=== PATIENT | female | born 1940 | race Caucasian/White ===

== ENCOUNTER → 2018-10-29 | Outpatient (CLI) | payer OTHER ==
[~2018-10-29] MED LIST: CALCAVITD PO; CHOL10002 PO; CIPR250 PO; CYCL10 PO; FISH1000 PO; HYDACE5 PO; IBUP800 PO; MATURE MULTI VITAMIN PO; METAMUCIL660 GM PO; METRIBP PO; Multiple Vitam1 EAC1 PO; ROSU10TA PO; XYZAL5 MG PO; [UNRECOGNIZED DRUG - MIXTURE] PO
[2018-10-31 16:09] LABS: HPV 16 Negative (Negative); HPV 18 Negative (Negative); HPV OTHER HR TYPES Negative (Negative)
== END | disposition home or self-care (01) ==
LOC: LAB 20:20 → LAB SHORT 20:20
PROVIDERS: Nurse Practitioner Women's Health
DX: Z12.4 Encounter for screening for malignant neoplasm of cervix (principal)
CPT/HCPCS: 87624; G0123

== ENCOUNTER → 2020-01-16 | Outpatient (CLI) | payer OTHER ==
[2020-01-16 17:33] LABS: BASOPHILS ABSOLUTE AUTO 0.07 K/mm3 (0.00-0.23); BASOPHILS PERCENT AUTO 1 % (0-2); EOSINOPHILS ABSOLUTE AUTO 0.06 K/mm3 (0.00-0.68); EOSINOPHILS PERCENT AUTO 1 % (0-6); Hematocrit 35.9 % (33.0-51.0); Hemoglobin 12.1 g/dL (11.5-16.0); IMMATURE GRAN ABSOLUTE AUTO 0.04 K/mm3 (0.00-0.10); IMMATURE GRAN PERCENT AUTO 0 % (0-1); LYMPHOCYTES ABSOLUTE AUTO 0.92 K/mm3 (0.84-5.20); LYMPHOCYTES PERCENT AUTO 8 % (21-46); MONOCYTES ABSOLUTE AUTO 0.72 K/mm3 (0.16-1.47); MONOCYTES PERCENT AUTO 6 % (4-13); Mean Corpuscular HGB 30.9 pg (26.0-34.0); Mean Corpuscular HGB Conc 33.7 g/dL (31.5-36.5); Mean Corpuscular Volume 92 fL (80-100); Mean Platelet Volume 9.7 fL (9.1-12.4); NEUTROPHILS ABSOLUTE AUTO 9.81 K/mm3 (1.96-9.15); NEUTROPHILS PERCENT AUTO 85 % (41-73); Platelet Count 225 K/mm3 (150-400); RDW Coefficient Variation 12.1 % (11.7-14.2); RDW Standard Deviation 40.8 fL (35.1-46.3); Red Blood Cell Count 3.91 M/mm3 (3.80-5.20); White Blood Cell Count 11.62 K/mm3 (4.00-11.30)
[2020-01-16 17:44] LABS: Alanine Aminotransfer (ALT/SGP 26 U/L (12-78); Albumin, Blood 3.9 g/dL (3.4-5.0); Albumin/Globulin Ratio 1.1 (0.8-1.8); Alk Phos 74 U/L (40-126); Anion Gap 7 mmol/L (6-16); Aspartate Aminotrans (AST/SGOT 21 U/L (12-37); Bilirubin, Total 0.6 mg/dL (0.1-1.0); Blood Urea Nitrogen 18 mg/dL (8-24); Bun/Creatinine Ratio 24.7 (12.0-20.0); CO2, Blood 31 mmol/L (21-32); Calcium, Blood 8.8 mg/dL (8.5-10.1); Chloride, Blood 104 mmol/L (98-108); Creatinine, Blood 0.73 mg/dL (0.40-1.00); Globulin, Blood 3.4 g/dL (2.2-4.0); Glomerular Filtration Rate >60 (60-); Glucose, Blood 129 mg/dL (70-99); Potassium, Blood 3.9 mmol/L (3.5-5.5); Sodium, Blood 142 mmol/L (136-145); Total Protein, Blood 7.3 g/dL (6.4-8.2)
== END | disposition home or self-care (01) ==
LOC: LAB SHORT 17:27 → LAB EV 17:27
PROVIDERS: Physician Assistant
DX: M25.551 Pain in right hip (principal)
CPT/HCPCS: 80053; 85025

== ENCOUNTER 2021-02-01 10:58 | Inpatient (IN) | payer OTHER ==
[~2021-02-01] VITALS: Ht 172.7 cm; Wt 56.0 kg
[~2021-02-01 10:58] MED LIST changes: -CALCAVITD PO; +CALCIUM 600-VI1 EAC2 PO; +METAMUCIL POWD575 GM PO; -METAMUCIL660 GM PO
[2021-02-01 11:41] LABS: BASOPHILS ABSOLUTE AUTO 0.06 K/mm3 (0.00-0.23); BASOPHILS PERCENT AUTO 1 % (0-2); EOSINOPHILS ABSOLUTE AUTO 0.13 K/mm3 (0.00-0.68); EOSINOPHILS PERCENT AUTO 3 % (0-6); Hematocrit 34.5 % (33.0-51.0); Hemoglobin 11.7 g/dL (11.5-16.0); IMMATURE GRAN ABSOLUTE AUTO 0.02 K/mm3 (0.00-0.10); IMMATURE GRAN PERCENT AUTO 0 % (0-1); LYMPHOCYTES ABSOLUTE AUTO 1.08 K/mm3 (0.84-5.20); LYMPHOCYTES PERCENT AUTO 23 % (21-46); MONOCYTES ABSOLUTE AUTO 0.46 K/mm3 (0.16-1.47); MONOCYTES PERCENT AUTO 10 % (4-13); Mean Corpuscular HGB 31.3 pg (26.0-34.0); Mean Corpuscular HGB Conc 33.9 g/dL (31.5-36.5); Mean Corpuscular Volume 92 fL (80-100); Mean Platelet Volume 9.2 fL (9.1-12.4); NEUTROPHILS ABSOLUTE AUTO 3.01 K/mm3 (1.96-9.15); NEUTROPHILS PERCENT AUTO 63 % (41-73); Platelet Count 211 K/mm3 (150-400); RDW Coefficient Variation 12.1 % (11.7-14.2); RDW Standard Deviation 40.9 fL (35.1-46.3); Red Blood Cell Count 3.74 M/mm3 (3.80-5.20); White Blood Cell Count 4.76 K/mm3 (4.00-11.30)
[2021-02-01 12:02] LABS: Anion Gap 6 mmol/L (6-16); Blood Urea Nitrogen 12 mg/dL (8-24); CO2, Blood 28 mmol/L (21-32); Calcium, Blood 8.1 mg/dL (8.5-10.1); Chloride, Blood 106 mmol/L (98-108); Creatinine, Blood 0.67 mg/dL (0.40-1.00); Glomerular Filtration Rate >60 (60-); Glucose, Blood 98 mg/dL (70-99); Potassium, Blood 3.9 mmol/L (3.5-5.5); Sodium, Blood 140 mmol/L (136-145)
[2021-02-01] MEDS ORDERED: CARBIDOPA-LEVO1 EA15 PO (14:15)
[2021-02-01] MEDS ORDERED: DONEPEZIL HCL10 M1 PO (14:16)
[2021-02-01 14:38] LABS: Influenza A, PCR NEGATIVE (NEGATIVE); Influenza B, PCR NEGATIVE (NEGATIVE); Resp Syncytial Virus, PCR NEGATIVE (NEGATIVE); SARS-Cov-2 (COVID-19) PCR, MMC NEGATIVE (NEGATIVE)
--- NOTE | 2021-02-01 15:59 | NUR ---
NO ORTHO CONSULT ORDER NOTED BY DR. SHANKS STATES HE HAS BEEN NOTIFIED BY ED OF PT.
--- NOTE | 2021-02-01 16:08 | NUR ---
ARRIVED FROM THE ED VIA DEVIN, AWAKE, A&O X3 BUT SLOW TO RESPOND AT TIMES AND HAS DIFFICULTY GETTING HER WORDS OUT AT BEDSIDE, ORIENTED TO ROOM LAYOUT AND CALL LIGHT, RHIANNA CRUZ ARMED FOR SAFETY.
--- NOTE | 2021-02-01 17:11 | NUR ---
SUMMARY RATES PAIN AT 3/10 AFTER MEDICATED WITH IV DILAUDID, RESTING COMFORTABLY, ICE APPLIED TO R HIP AREA, NO ACUTE CHANGES THIS SHIFT.
[2021-02-02 05:11] LABS: BASOPHILS ABSOLUTE AUTO 0.06 K/mm3 (0.00-0.23); BASOPHILS PERCENT AUTO 1 % (0-2); EOSINOPHILS ABSOLUTE AUTO 0.19 K/mm3 (0.00-0.68); EOSINOPHILS PERCENT AUTO 2 % (0-6); Hematocrit 34.4 % (33.0-51.0); Hemoglobin 11.6 g/dL (11.5-16.0); IMMATURE GRAN ABSOLUTE AUTO 0.03 K/mm3 (0.00-0.10); IMMATURE GRAN PERCENT AUTO 0 % (0-1); LYMPHOCYTES ABSOLUTE AUTO 0.67 K/mm3 (0.84-5.20); LYMPHOCYTES PERCENT AUTO 8 % (21-46); MONOCYTES ABSOLUTE AUTO 0.71 K/mm3 (0.16-1.47); MONOCYTES PERCENT AUTO 8 % (4-13); Mean Corpuscular HGB 30.8 pg (26.0-34.0); Mean Corpuscular HGB Conc 33.7 g/dL (31.5-36.5); Mean Corpuscular Volume 91 fL (80-100); Mean Platelet Volume 9.2 fL (9.1-12.4); NEUTROPHILS ABSOLUTE AUTO 7.03 K/mm3 (1.96-9.15); NEUTROPHILS PERCENT AUTO 81 % (41-73); Platelet Count 181 K/mm3 (150-400); RDW Coefficient Variation 11.9 % (11.7-14.2); Red Blood Cell Count 3.77 M/mm3 (3.80-5.20); White Blood Cell Count 8.69 K/mm3 (4.00-11.30)
[2021-02-02 06:03] LABS: Magnesium, Blood 1.8 mg/dL (1.6-2.4)
[2021-02-02 06:04] LABS: Alanine Aminotransfer (ALT/SGP 33 U/L (12-78); Albumin, Blood 3.3 g/dL (3.4-5.0); Albumin/Globulin Ratio 1.2 (0.8-1.8); Alk Phos 59 U/L (50-136); Anion Gap 5 mmol/L (6-16); Aspartate Aminotrans (AST/SGOT 16 U/L (12-37); Bilirubin, Total 1.5 mg/dL (0.1-1.0); Blood Urea Nitrogen 9 mg/dL (8-24); Bun/Creatinine Ratio 14.2 (12.0-20.0); CO2, Blood 28 mmol/L (21-32); Calcium, Blood 7.9 mg/dL (8.5-10.1); Chloride, Blood 104 mmol/L (98-108); Creatinine, Blood 0.63 mg/dL (0.40-1.00); Globulin, Blood 2.8 g/dL (2.2-4.0); Glomerular Filtration Rate >60 (60-); Glucose, Blood 97 mg/dL (70-99); Potassium, Blood 3.8 mmol/L (3.5-5.5); Sodium, Blood 137 mmol/L (136-145); Total Protein, Blood 6.1 g/dL (6.4-8.2)
--- NOTE | 2021-02-02 06:24 | NUR ---
SHIFT SUMMARY LYING IN SEMI FOWLERS WITH EYES CLOSED. ABLE TO SWALLOW MEDS WHOLE WITH WATER NEEDED. HAS RESTED OFF AND ON THIS SHIFT. NO SIGNIFICANT CHANGES NOTED. RESPIRATIONS EVEN AN UNLABORED ON RA. ADEQUATE URINARY OUTPUT NOTED IN MOSER CATH. LEFT HIP IS ONLY PAINFUL WHEN MOVED, HAS DENIES NEED FOR PAIN MEDS. COOPER'S/SCD'S IN PLACE. WILL BE AN ADD ON TODAY, HAS BEEN NPO SINCE [place]. ATTEMPTED TO HAVE BM TWICE WITHOUT SUCCESS. UNABLE TO TOLERATED SITTING ON BEDPAN. HAS DENIED FURTHER PAIN, DISCOMFORT OR OTHER NEEDS AT THIS TIME. SAFETY MEASURES IN PLACE. WILL CONTINUE TO MONITOR AND ADDRESS NEEDS OR CONCERNS THEY ARISE. HAND OFF TO BE GIVEN TO ONCOMING SHIFT USING SBAR DURING BEDSIDE REPORT.
--- NOTE | 2021-02-02 10:30 | NUR ---
PT LEFT FOR SURGERY AT THIS TIME. PT USED BED KENDALL PRIOR TO LEAVING. MOSER IN PLACE PATENT AND DRAINING. GOLD WATCH SENT HOME WITH .
--- NOTE | 2021-02-02 10:39 | NUR ---
PT TRANSFERED TO [facility] VIA BED FROM FLOOR. History, Chart, Medications and Allergies reviewed before start of procedure. Lungs clear T/O to Auscultation. Patient confirms NPO status and agrees with scheduled surgery. Pre-Op teaching done. Pt verbalizes understanding.
--- NOTE | 2021-02-02 10:41 | NUR ---
PT'S 20 GAUGE IV IN RAC IS PATENT, WNL.
--- NOTE | 2021-02-02 14:43 | NUR ---
ARRIVAL TO UNIT PT ARRIVED TO UNIT FROM PACU AT APPROX 1430. PT WAKES UP TO VERBAL STIMULI AND WILL ANSWER QUESTIONS. FALLS BACK ASLEEP QUICKLY. REPORTS SOME NAUSEA AND DENIES PAIN. WHILE ASLEEP HAS BEEN REACHING FOR CATHETER/IV/DRESSINGS. ATTEMPTED TO REORIENT PATIENT. SHE STATES SHE JUST WANTS TO SLEEP. TOLERATED SMALL AMOUNT OF WATER WITH NAUSEA PILL. AT BEDSIDE. AQUACEL TO R HIP, CDI AT THIS TIME. SCD'S ON, COOPER HOSE ON.
--- NOTE | 2021-02-02 16:36 | NUR ---
SHIFT SUMMARY PT RETURNED FROM SURGERY AT APPROX 1430. ALERT TO PLACE BUT HAVING SOME CONFUSION. SEEING AND GRABBING AT THINGS IN THE AIR. KEEPS ASKING TO LAY DOWN WHEN SHE IS LAYING IN BED. AQUACEL TO SURGERY SITE WITH SOME DRAINAGE ABOUT THE SIZE OF A NICKEL PT IS CURRENTLY SLEEPING IN BED. APPLIED ICE PACK TO RIGHT HIP SURGERY SITE. CONTINUE TO MONITOR SIGNS OF PAIN AND WILL MEDICATE PER EMAR. MOSER CATHETER IN PLACE AND FUNCTIONING. IV PATENT AND RUNNING NS. AT BEDSIDE. COMPLAINED OF NAUSEA ONCE AND MEDICATED PER EMAR. TOLERATED ONE SIP OF WATER WELL.
--- NOTE | 2021-02-02 19:43 | NUR ---
RECIVED REPORT AND ASSUMED CARE OF PT. PT RESTING QUIETLY IN BED, FIDGETING WTIH SHEETS, ASKING TO GET OUT OF BED. CONFUSED, EASILY REDIRECTED. PLEASANT AND COOPERATIVE.
[2021-02-03 05:45] LABS: BASOPHILS ABSOLUTE AUTO 0.04 K/mm3 (0.00-0.23); BASOPHILS PERCENT AUTO 0 % (0-2); EOSINOPHILS ABSOLUTE AUTO 0.05 K/mm3 (0.00-0.68); EOSINOPHILS PERCENT AUTO 1 % (0-6); Hematocrit 35.1 % (33.0-51.0); Hemoglobin 12.1 g/dL (11.5-16.0); IMMATURE GRAN ABSOLUTE AUTO 0.04 K/mm3 (0.00-0.10); IMMATURE GRAN PERCENT AUTO 0 % (0-1); LYMPHOCYTES ABSOLUTE AUTO 0.47 K/mm3 (0.84-5.20); LYMPHOCYTES PERCENT AUTO 5 % (21-46); MONOCYTES ABSOLUTE AUTO 0.64 K/mm3 (0.16-1.47); MONOCYTES PERCENT AUTO 7 % (4-13); Mean Corpuscular HGB 30.9 pg (26.0-34.0); Mean Corpuscular HGB Conc 34.5 g/dL (31.5-36.5); Mean Corpuscular Volume 90 fL (80-100); Mean Platelet Volume 9.2 fL (9.1-12.4); NEUTROPHILS ABSOLUTE AUTO 8.54 K/mm3 (1.96-9.15); NEUTROPHILS PERCENT AUTO 87 % (41-73); Platelet Count 198 K/mm3 (150-400); RDW Coefficient Variation 11.9 % (11.7-14.2); RDW Standard Deviation 38.5 fL (35.1-46.3); Red Blood Cell Count 3.92 M/mm3 (3.80-5.20); White Blood Cell Count 9.78 K/mm3 (4.00-11.30)
--- NOTE | 2021-02-03 06:20 | NUR ---
SHIFT SUMMARY: JANNET IS ALERT AND ORIENTED TO SELF, SITUATION, AND FAMILY. VSS, NO ACUTE EVENTS THIS SHIFT. MOSER PATENT. IV TO R AC PATENT, IVF INFUSING. AQUACELL TO R HIP INTACT W/SCANT DRAINAGE. SHE CONTINUES TO ATTEMPT TO GET OUT OF BED. SHE DOES REORIENT EASILY, BUT ONLY FOR A SHORT TIME. SHE IS TOLERATING PO INTAKE WELL. SHE HAS USED THE CALL LIGHT INFREQUENTLY THIS SHIFT. BASELINE TREMOR D/T PARKINSON'S. SHE IS LYING IN BED WITH THE CALL LIGHT IN REACH. WILL REPORT TO DAY SHIFT RN.
--- NOTE | 2021-02-03 10:51 | NUR ---
PT RESTLESS, ATTEMPTING TO GET OUT OF BED. REACHING FOR TUBES AND ATTEMPTING TO REMOVE GOWNS. BECOMES AGITATED WITH REDIRECTION. IN ROOM REPORTS CONCERN WITH PATIENTS AGITATION AND RESTLESSNESS. SPOKE WITH DR COCHRAN. ORDERS RECIEVED FOR 2.5MG HALDOL IV X1.
--- NOTE | 2021-02-03 11:34 | NUR ---
PT CURRENTLY ASLEEP IN BED AFTER HALDOL ADMINISTERED. REPOSITIONED UP IN BED. 02 SAT IS 99% ON ROOM AIR WHILE ASLEEP. BED ALARM IS ON AND BE IS IN LOW POSITION.
--- NOTE | 2021-02-03 16:06 | NUR ---
SHIFT SUMMARY POD 1 R PERCUTANEOUS HIP PINNING PT HAS BEEN CONFUSED T/O SHIFT, SHE REACHES FOR CORDS AND REMOVES GOWN AND BLANKETS. VERY ANXIOUS DURING SHIFT, REPEATS THAT SHE WANTS TO GO HOME. HALDOL GIVEN PER ORDERS AND PATIENT WAS ABLE TO SLEEP. PT REPEATEDLY DENIES PAIN WHEN ASKED. MOSER IS PATENT AND DRAINING. PT TOLERATING PO WELL, NEEDS ENCOURAGEMENT TO EAT. SHE WAS ABLE TO WORK WITH THERAPY AND GET UP TO CHAIR. DIETITIAN MET WITH PATIENT AND TODAY. PALLIATIVE CARE IN TO SEE PATIENT AND SPOUSE. DRESSING IS INTACT. PT CONTINUES TO HOLD R ARM CLOSE AND PROTECT IT WHEN MOVING. PLAN TO CONTINUE WORKING ON MOBILIZING PATIENT
--- NOTE | 2021-02-03 16:44 | NUR ---
Spoke with Bedside RN Beau and discussed case. Pt and spouse may benefit from advanced care planning. Pt sitting in chair upon arrival. Pt denies pain, dyspnea, and anxiety at this time. Spouse Naeem at bedside. Pt struggles with communication and is slow to respond to questions. Engaged in therapeutic listening as Pt and spouse discusses some of their life events. Pt reports growing up with 5 brothers and no sisters. Pt states "God blessed her with 3 daughters". All 3 daughters live in [place]. Naeem is a and this RN thanked him for his service. Continued therapeutic listening. Naeem reports daughters are hesitant about visiting at this time due to COVID but are in the process of getting their vacinations. Gently educated Pt and Naeem on disease process including trajectory of disease. Discussed the importance of routine conversations with Pt's MDs and developing multiple plans as disease takes its coarse. Discussed the potential need for assistance with Pt's care pending her rehabilitation outcome. Continued therapeutic listening. Pt starting to drift off to sleep and this RN ended visit to allow Pt to rest. Palliative Care will remain available if called upon.
--- NOTE | 2021-02-03 17:47 | NUR ---
pt currently sitting up in her chair eating dinner. denies pain at this time.
--- NOTE | 2021-02-04 03:23 | NUR ---
SHIFT SUMMARY PT HAS BEEN ALERT, ORIENTED X2-3 AT START OF SHIFT. PT BEGAN TO GET VERY AGITATED AND WAS MED WITH HALDOL PER ORDER. PT HAS BEEN SLEEPING MOST OF THE SHIFT SINCE THE HALDOL WAS GIVEN. SHE HAS BEEN SLEEPING IN CHAIR PER PT REQUEST WITH LEGS ELEVATED AND TAB ALARM ON. MOSER IN PLACE, PATENT, STAT LOCK ON. ENCOURAGED PO INTAKE WHILE AWAKE, HOWEVER PT HAS DECLINED MOST PO INTAKE OVERNIGHT. PT RESTING IN CHAIR AT THIS TIME WITH CALL LIGHT IN REACH.
--- NOTE | 2021-02-04 07:25 | NUR ---
pt resting in recliner chair
--- NOTE | 2021-02-04 08:30 | NUR ---
pt sleeping wakes to verbals stimuli pt reposistioned asked pt if she would like to get back into bed pt stated no meds given as sched
--- NOTE | 2021-02-04 09:49 | NUR ---
pt visiting with family
--- NOTE | 2021-02-04 10:27 | NUR ---
ot at bedside working with pt
--- NOTE | 2021-02-04 11:01 | NUR ---
assisted back into bed with ot/pt ss also called req clarification on weight bearing status
--- NOTE | 2021-02-04 12:44 | NUR ---
02/04/21 1244 Mana Scott VERIFICATIONS: EDIT CHART.
--- NOTE | 2021-02-04 14:14 | NUR ---
pt wanting to rest req i lower the hob also worried she might spill her water so had me place the beside table to the side of the bed
--- NOTE | 2021-02-04 17:45 | NUR ---
PT SLEEPING WILL HOLD HER PO CALCIUM/VIT D
--- NOTE | 2021-02-05 06:42 | NUR ---
SHIFT SUMMARY POD3 R PERCUTANEOUS PINNING, ALERT BUT CONFUSED, EASILY REORIENTED, TOLERATING PO BUT HAS SOME TROUBLES W/ TREMORS RELATED TO PARKINSONS, PT REPORTS BEING STIFF AFTER SURGERY EVEN THOUGH SHE WAS UP TO CHAIR DURING DAY SHIFT, VOIDING VIA MOSER, WILL DISCUSS CONTINUATION W/ DAY RN. DENIES PAIN, REMAINED IN BED T/O SHIFT DUE TO STIFFNESS AND NWB STATUS TO RLE, DRESSING CHANGED THIS SHIFT DUE TO SATURATION, CLEANED W/ STERILE 4X4 AND WOUND CLEANSER. NO ACUTE EVENTS THIS SHIFT. CALL LIGHT IN REACH, WILL CONTINUE TO MONITOR AND REPORT TO ONCOMING DAY RN.
--- NOTE | 2021-02-05 10:55 | NUR ---
DISCHARGE PLANNING DISCUSSED PLAN FOR DISCHARE WITH IDA FROM CARE MANAGEMENT. IDA STATED DISCHARGE PLANNING WILL NEED TO WAIT UNTIL THE PROPER PEOPLE CAN BE CONTACTED AT [facility] ON SUNDAY; SINCE PT IS TO REMAIN NON-WEIGHT BEARING STATUS INSTEAD OF UPGRADING TO TOE TOUCH WEIGHT BEARING.
--- NOTE | 2021-02-05 18:11 | NUR ---
SHIFT SUMMARY PT IS POD#3 FROM A R HIP PINNING. PT HAS HAD MINIMAL PAIN. PT WAS UNABLE TO GET OOB TODAY. MOSER CATH REMAINS IN PLACE UNTIL TOMORROW PER DR. COCHRAN. PT IS WAITING FOR SNF PLACEMENT, APPARENTLY THERE HAS BEEN SOME DIFFICULTY SINCE PT IS TO REMAIN NON-WEIGHT BEARING. PT'S DAUGHTER IS PRESENT FOR SUPPORT. PT HAD PRUNE JUICE FOR BOWEL FUNCTION PER HER REQUEST, SHE ALSO HAD METAMUCIL. PT HAD A SMALL LIQUID BM TODAY. VSS. WILL MONITOR UNTIL REPORT TO NOC RN.
--- NOTE | 2021-02-05 18:54 | NUR ---
SUMMARY SHIFT PT IS A&OX2 ,POOD 3 HIP PINNING. PT WAS CONFUSED NOT AWARE WHERE SHE AT.PT HAS TREMORS CAUSED BY PARKINSONS,PT HAD MININAL PAIN .PAIN WAS MANAGED BY REPOSITIONIG AND REST.PT VOIDED THROUGH MOSER.PT & DAUGHTER WERE AT BEDSIDE FOR [place] .PATIENT HAD A SPONGE BATH TODAY AND WAS IN BED ALL SHIFT. PT VSS. WILL CONTINUE TO MONITOR AND GIVE REPORT TO NOC SHIFT.
--- NOTE | 2021-02-06 06:08 | NUR ---
SHIFT SUMMARY POD4 R PERCUTANEOUS PINNING, ALERT AND CONFUSED BUT PLEASANT, REORIENTS EASILY, COOPERATIVE W/ NURSING CARE, VSS, TOLERATING PO, DOES WELL W/ MEDS WHEN TREMORS ARE MINIMAL/STABLE, TREMORS R/T PARKINSONS, PAIN MANAGED PER EMAR. NO ACUTE EVENTS THIS SHIFT. CALL LIGHT IN REACH, WILL CONTINUE TO MONITOR AND REPORT TO ONCOMING DAY RN.
--- NOTE | 2021-02-06 09:45 | NUR ---
MOSER CATHETER REMOVED AT 0945.
--- NOTE | 2021-02-06 11:00 | NUR ---
FAMILY AT PT'S BEDSIDE PROVIDING SUPPORT.
--- NOTE | 2021-02-06 17:41 | NUR ---
DECREASED OUTPUT DR. MILLER NOTIFIED THAT PT HAS HAD 200ML OF URINE OUT AND CURRENTLY HAS 116ML OF URINE IN HER BLADDER. ENCOURAGING PT TO DRINK FLUIDS. ICE CHIPS PROVIDED FOR PT AND FLUIDS THAT SHE ENJOYS WERE ALSO PROVIDED. FAMILY EDUCATED TO USE THE BED SO THEY CAN ASSIST PT TO DRINK FLUIDS WHEN AWAKE.
--- NOTE | 2021-02-06 18:40 | NUR ---
SHIFT SUMMARY PT IS POD#4 FROM R HIP PINNING. MOSER CATHETER REMOVED THIS SHIFT, PT STILL NEEDS TO VOID, BLADDER SCAN 116ML. DR. MILLER AWARE OF DECREASED OUTPUT, FLUIDS HAVE BEEN ENCOURAGED. PT HAS REQUIRED ASSISTANCE WITH REPOSTIONING. FAMILY HAS ASSISTED WITH MEALS. PT HAS BEEN DROWSY TODAY. PAIN MANAGED WITH TYLENOL, PT HAS HAD MINIMAL PAIN. VSS. WAITING FOR POSSIBLE PLACEMENT TOMORROW. WILL MONITOR UNTIL REPORT TO NOC RN.
--- NOTE | 2021-02-06 18:44 | NUR ---
SHIFT SUMMARY PT WAS DROWSY MOST OF THE SHIFT,OBEYED COMMAND.PT WAS VERY COOPARATIVE DURING NUSRING CARE .PT VSS.PT PAIN WAS MANAGED PER EMAR, REPOSITIONING AND REST.PT AND DAUGHTER WERE AT BEDSIDE FOR SUPPORT.WILL CONTINUE TO MONITOR AND ASSESS PT.WILL GIVE REPORT TO UPCOMING SHIFT.
--- NOTE | 2021-02-06 22:24 | NUR ---
BLADDER SCAN BLADDER SCAN PERFORMED ON PT, RESULTS > 280ML, PLACED PT ON BED KENDALL BUT SHE WAS UNABLE TO VOID AT THIS TIME, WILL TRY AGAIN BY MIDNIGHT AND REDO SCAN. PT HAS HAD MINIMAL PO INTAKE TODAY, PROVIDER AWARE. WILL CONTINUE TO MONITOR PT CONDITION
--- NOTE | 2021-02-07 05:50 | NUR ---
SHIFT SUMMARY POD5 R PERCUTANEOUS PINNING, ALERT AND CONFUSED, REORIENTATION IS MINIMAL BUT PT REMAINS PLEASANT AND COOPERATIVE T/O SHIFT W/ ALL NURSING CARE, TOLERATES PO BUT APPEARS TO TAKE A BIT TO SWALLOW, GAVE BIGGER PILLS CRUSHED IN APPLE SAUCE THOUGH PT DIDN'T SHOW ANY SIGNS OF ASPIRATION BUT SHE DID SEEM TO HAVE SOME DIFFICULTY W/ LARGER PILLS, MINIMAL PO INTAKE, ENCOURAGED W/ NURSE ROUNDING AND CHECK/CHAGE OF ATTENDS. PAIN MANAGED PER EMAR. NO ACUTE EVENTS THIS SHIFT. CALL LIGHT IN REACH, WILL CONTINUE TO MONITOR AND REPORT TO DAY RN.
--- NOTE | 2021-02-07 17:16 | NUR ---
SHIFT SUMMARY POD 5 R PERCUATANEOUS HIP PINNING. PT ORIENTED TO SITUATION, LOCATION AND DATE AT TIMES. OCCASIONALLY FORGETFUL BUT WITH REMINDING SHE REORIENTS QUICKLY. PT VERY WEAK WHEN STANDING REQUIRED 2/3 ASSISST WITH STANDING. CAN STATE THAT SHE IS NWB R LEG BUT UNABLE TO MAINTAIN THOSE PRECATIONS. PT VOIDING IN BSC. TOLERATING SMALL AMOUNTS OF PO WITH ASSISTANCE. PT REPORING L SHOULDER PAIN, AWAITING X RAY TO SEE. PT WAS REPORTING BLURRY VISION. AWARE. WILL PASS ON TO ONCOMING SHIFT.
--- NOTE | 2021-02-08 02:56 | NUR ---
SHIFT SUMMARY: POD 6 RIGHT HIP PINNING PATIENT IS ALERT AND ORIENTED X2-3. SHE IS OFTEN CONFUSED AT TIMES BUT CAN BE REORIENTED. SHE DOES HAVE A HX OF DEMENTIA AND IS SLOW AT SPEAKING. PATIENT IS STILL COOPERATIVE AND PLEASANT TO STAFF. VS ARE WNL AND IS ON RA. PAIN IS MANAGED WITH PO TYLENOL. SHE IS A 2-3 PERSON MAX ASSIST TO BEDSIDE COMMODE OR CHAIR. FWW AND GAIT BELT ARE USED WITH TRANSFER. AQUACEL IS C/D/I ON RIGHT HIP. PATIENT IS ABLE TO WIGGLE TOES AND FINGERS WHEN ASKED. SHE IS NON WT BEARING ON THE RIGHT LEG. PATIENT OFTEN NEEDS REMINDED OF WT BEARING STATUS OF HER RIGHT LEG. SHE IS CURRENTLY LAYING IN BED. CALL LIGHT WITHIN REACH. THE PLAN IS TO CONTINUE TO WORK WITH PT AND WAITING FOR SNF PLACEMENT.
--- NOTE | 2021-02-08 15:47 | NUR ---
Spoke with Bedside RN and discussed case. Pt and family may benefit from palliative care once D/C or from other community resources. Pt resting in recliner with her eyes closed upon arrival. Pt appears comfortable with no S/S of distress at this time. Pt's daughter at bedside. Engaged in therapeutic conversation regarding advanced care planning including the need for caregiver support and possible higher level of care. Offered therapeutic listening and anwered questions. Discussed Pt's spouse Naeem with him being a vetran. Will discuss with caremanagement if any benefits are available for Pt through spouse's status. Continued therapeutic listening. Brief discussion regarding trajectory of disease process and considering hospice in the future. Daughter expresses appreciation of visit and reports no other concerns at this time. Spoke with Caremanager Govind and discussed case. Govind will look into possible VA benefits Pt may have through spouse status. Govind has provided different daughter with community resources including caregiver list. Palliative Care will remain available.
--- NOTE | 2021-02-08 17:24 | NUR ---
SHIFT SUMMARY POD 6 R HIP PINNING PT [id number]. RECOGNIZES HER NAME BUT DIFFICULTY ANSWERING ANY OTHER QUESTIONS. WILL OCCASIONALLY ANSWER YES/NO QUESTIONS. PT REQUIRED 3 PERSON MAX ASSIST WITH TRANSFER AND CARE TODAY. UNABLE TO HELP WITH TRANSFERS, REQUIRED SLIDE FROM RECLINER TO BED. PT UNABLE TO SWALLOW PILLS SAFELY, UNABLE TO USE A STRAW TO DRINK WATER. C/O PAIN IN BILATERAL SHOULDERS, DECLINES PAIN NOW THAT LIDOCAINE PATCHES ARE ON. PT ATTEMPTING TO VOID ON BED KENDALL. FAMILY IS AT BEDSIDE.
--- NOTE | 2021-02-09 02:28 | NUR ---
SHIFT SUMMARY: POD 7 RIGHT HIP PINNING PATIENT IS CONFUSED AND REPONDS TO VERBAL STIMULI. VS ARE WNL AND ON RA. PAIN IS CONTROLLED WITH TORADOL IV. PATIENTS AQUACEL IS C/D/I. SHE IS A 3 PERSON MAX ASSIST WHEN ATTEMPTING TO GET UP TO CHAIR OR BEDSIDE COMMODE. BLADDER SCANNED HER EARILER IN THE SHIFT AND HAD AN ESTIMATED <500 ML OF URINE. THIS INDICATED FOR STRAIGHT CATH USE. PATIENT VOIDED 600 ML WITH STRAIGHT CATH AND WAS DARK YELLOW URINE OUTPUT. SHE HAS BEEN ASLEEP MAJORITY OF THE SHIFT. CALL LIGHT WITHIN REACH. BED ALARM IS ON. PATIENT IS LAYING IN BED WITH TV OFF. IV IS WNL AND INFUSING FLUIDS. PATIENT IS TO BE NON WT BEARING ON HER RIGHT HIP. THE PLAN IS PAIN MANAGEMENT AND FINDING OUT WHAT THE PLAN IS FOR HER.
--- NOTE | 2021-02-09 16:31 | NUR ---
PESSARY REMOVED PATIENT HAS BEEN EXPERIENCING URINARY RETENTION. IN PASSING THE PATIENT MENTIONED SHE HAD A PESSARY DEVICE INSERTED IN THE VAGINA. AFTER DISCUSSING WITH THE PATIENT AND FAMILY MEMBER, DR MILLER WAS CALLED AND NOTIFIED. DR MILLER CALLED THE PATIENT'S TUBE CUTTER OPERATOR AT DR COLEMAN'S OFFICE. THEY SAID IT WOULD BE OKAY TO REMOVE THE PESSARY TO SEE IF IT WILL HELP IMPROVE THE PATIENT'S URINAY RETENTION. PESSARY DEVICE WAS REMOVED BY MARGOTH ZHANG RN. PT TOLERATED THE REMOVAL WELL.
--- NOTE | 2021-02-09 19:00 | NUR ---
SHIFT SUMMARY PT ALERT AND ORIENTED THROUGHOUT SHIFT. RESPONDS APPROPRIATELY. SHE DOES STRUGGLE TO FIND WORDS AND EXPRESS HERSELF. 2 PERSON MAX ASSIST TO PIVOT TRANSFER TO COMMODE AND CHAIR. AQUACEL IN PLACE TO RIGHT HIP. TOLERATING REGULAR DIET, PO FLUIDS, AND PILLS. PESSARY DEVICE REMOVED THIS SHIFT TO SEE IF URINARY RETENTION WILL IMPROVE. PT TOLERATED WELL. PLAN IS TO DISCHARGE TO SNF IF PATIENT CAN MAINTAIN STABLE MENTATION.
--- NOTE | 2021-02-10 06:13 | NUR ---
SHIFT SUMMARY POD8 R PERC PINNING, ALERT AND PLEASANTLY CONFUSED THOUGH MUCH MORE ALERT AND TALKATIVE TODAY AND TONIGHT COMPARED TO PRIOR SHIFTS, PT UP TO CHAIR AT START OF SHIFT, USING BSC FOR VOIDING AND BM'S, DENIES PAIN OTHER THAN SORENESS TO SHOULDER WHICH HAS BEEN TOELRABLE, TOLERATING PO, TREMORS MORE STABLE TONIGHT. NO ACUTE EVENTS THIS SHIFT, CALL LIGHT IN REACH, WILL CONTINUE TO MONITOR AND REPORT TO ONCOMING DAY RN.
[2021-02-10 16:25] LABS: Influenza A, PCR NEGATIVE (NEGATIVE); Influenza B, PCR NEGATIVE (NEGATIVE); Resp Syncytial Virus, PCR NEGATIVE (NEGATIVE); SARS-Cov-2 (COVID-19) PCR, MMC NEGATIVE (NEGATIVE)
--- NOTE | 2021-02-10 17:58 | NUR ---
DISCHARGE REPORT CALLED TO MARTIN AT [facility] AT APPROXIMATELY 1700. MARTIN WAS NOTIFIED THAT PT HAD A TEMP OF 99.3 AND HIGH OF 99.4 TODAY. COVID TEST WAS NEGATIVE. MARTIN REPORTED THAT HE CONTACTED A NURSING SAMPLE MAKER HAND REGARDING THIS SITUATION, MARTIN CALLED BACK AND REPORTED OK FOR PT TO COME TO [facility]. RESULT OF COVID TEST NEGATIVE, RESULT FAXED TO [facility] AND COPY SENT IN PT'S DISCHARGE PACKET.
--- NOTE | 2021-02-10 18:00 | NUR ---
DISCHARGE NOTE PT VOIDED, TORALETED PO AND PAIN WAS MANAGED BEFORE DISCHARGE.PT VSS.PT FAMILY WAS HERE FOR SUPPORT AND HELPED HER GET READY TO BE DISCHARGED.PT WAS DISCHARGED TO A [facility].
== END 2021-02-10 17:48 | DRG 481 ==
LOC: ER 10:58 → SURS 14:03
PROVIDERS: Emergency Medicine; Internal Medicine; Orthopaedic Surgery; ADMIT Internal Medicine
PROC: 0QS604Z Reposition Right Upper Femur with Internal Fixation Device, Open Approach (ICD-10-PCS; principal; 2021-02-02 10:45)
DX: S72.011A Unspecified intracapsular fracture of right femur, initial encounter for closed fracture (principal); E44.0 Moderate protein-calorie malnutrition; G30.9 Alzheimer's disease, unspecified; F02.80 Dementia in other diseases classified elsewhere, unspecified severity, without behavioral disturbance, psychotic disturbance, mood disturbance, and anxiety; Z20.822 Contact with and (suspected) exposure to COVID-19; G20 Parkinson's disease; Z96.652 Presence of left artificial knee joint; K21.9 Gastro-esophageal reflux disease without esophagitis; E78.5 Hyperlipidemia, unspecified; R33.8 Other retention of urine; R45.1 Restlessness and agitation; M19.012 Primary osteoarthritis, left shoulder; M75.102 Unspecified rotator cuff tear or rupture of left shoulder, not specified as traumatic; I10 Essential (primary) hypertension; W01.190A Fall on same level from slipping, tripping and stumbling with subsequent striking against furniture, initial encounter; Z88.2 Allergy status to sulfonamides; Z98.890 Other specified postprocedural states; Z88.5 Allergy status to narcotic agent; Y92.008 Other place in unspecified non-institutional (private) residence as the place of occurrence of the external cause; Z79.899 Other long term (current) drug therapy; Z68.20 Body mass index [BMI] 20.0-20.9, adult
CPT/HCPCS: 0241U; 36415; 51702; 70450; 72125; 73030; 73502; 80048; 80053; 82330; 82947; 83735; 84443; 85025; 97110; 97112; 97162; 97166; 97530; 97535; 99285-25; A9270; A9270-GY; C1713; C1769; J0690; J1170; J1630; J1650; J1885; J3010; J7030; J7042; J7120

== ENCOUNTER 2021-10-08 12:48 | Observation (INO) | payer OTHER ==
[~2021-10-08] VITALS: Ht 162.6 cm; Wt 47.6 kg
[~2021-10-08 12:48] MED LIST changes: +CARBIDOPA-LEVO1 EA15 PO; +DONEPEZIL HCL10 M1 PO
[2021-10-08 14:13] LABS: BASOPHILS ABSOLUTE AUTO 0.04 K/mm3 (0.00-0.23); BASOPHILS PERCENT AUTO 1 % (0-2); EOSINOPHILS ABSOLUTE AUTO 0.06 K/mm3 (0.00-0.68); EOSINOPHILS PERCENT AUTO 1 % (0-6); Hematocrit 37.9 % (33.0-51.0); Hemoglobin 13.5 g/dL (11.5-16.0); IMMATURE GRAN ABSOLUTE AUTO 0.04 K/mm3 (0.00-0.10); IMMATURE GRAN PERCENT AUTO 1 % (0-1); LYMPHOCYTES ABSOLUTE AUTO 0.99 K/mm3 (0.84-5.20); LYMPHOCYTES PERCENT AUTO 17 % (21-46); MONOCYTES PERCENT AUTO 7 % (4-13); Mean Corpuscular HGB 31.8 pg (26.0-34.0); Mean Corpuscular HGB Conc 35.6 g/dL (31.5-36.5); Mean Corpuscular Volume 89 fL (80-100); Mean Platelet Volume 9.7 fL (9.1-12.4); NEUTROPHILS ABSOLUTE AUTO 4.45 K/mm3 (1.96-9.15); NEUTROPHILS PERCENT AUTO 74 % (41-73); Platelet Count 274 K/mm3 (150-400); RDW Coefficient Variation 12.2 % (11.7-14.2); Red Blood Cell Count 4.24 M/mm3 (3.80-5.20); White Blood Cell Count 5.98 K/mm3 (4.00-11.30)
[2021-10-08 14:14] LABS: Alanine Aminotransfer (ALT/SGP 21 U/L (12-78); Albumin, Blood 3.8 g/dL (3.4-5.0); Albumin/Globulin Ratio 1.4 (0.8-1.8); Alk Phos 68 U/L (50-136); Anion Gap 5 mmol/L (6-16); Aspartate Aminotrans (AST/SGOT 26 U/L (12-37); Bilirubin, Total 0.8 mg/dL (0.1-1.0); Blood Urea Nitrogen 17 mg/dL (8-24); Bun/Creatinine Ratio 23.1 (12.0-20.0); CO2, Blood 31 mmol/L (21-32); Calcium, Blood 8.7 mg/dL (8.5-10.1); Chloride, Blood 97 mmol/L (98-108); Creatinine, Blood 0.74 mg/dL (0.40-1.00); Globulin, Blood 2.8 g/dL (2.2-4.0); Glomerular Filtration Rate >60 (60-); Glucose, Blood 103 mg/dL (70-99); Potassium, Blood 4.1 mmol/L (3.5-5.5); Sodium, Blood 133 mmol/L (136-145); Total Protein, Blood 6.6 g/dL (6.4-8.2); Troponin I 0.017 ng/mL (0.000-0.040)
[2021-10-08 14:15] LABS: Ethanol (Alcohol), Blood, Med <3 mg/dL
[2021-10-08] MEDS ORDERED: MYRBETRIQ25 MG PO (14:59)
[2021-10-08 15:17] LABS: U Amphetamine Screen Not Detected; U Barbituate Screen Not Detected; U Benzodiazapine Screen Not Detected; U Buprenorphine Screen Not Detected; U Cannabinoids Screen Not Detected; U Cocaine Screen Not Detected; U Methadone Screen Not Detected; U Methamphetamine Screen Not Detected; U Opiates Screen Not Detected; U Oxycodone Screen Not Detected; U Phencyclidine Screen Not Detected; U Propoxyphene Screen Not Detected
[2021-10-08 16:06] LABS: Influenza A, PCR NEGATIVE (NEGATIVE); Influenza B, PCR NEGATIVE (NEGATIVE); Resp Syncytial Virus, PCR NEGATIVE (NEGATIVE); SARS-Cov-2 (COVID-19) PCR, MMC NEGATIVE (NEGATIVE)
--- NOTE | 2021-10-08 17:43 | NUR ---
pt unresponsive. she is holding her arma tight yawning and sme tremoring. Review of medications with nursing. suggest monitoring BP. Reqiest separate ativan dosing pt high risk for seizures. columba neck pillow for careful positioning. brought quilt and theraputic time with family. Family will stay in shifts may be eminent.
--- NOTE | 2021-10-08 18:50 | NUR ---
DAY SHIFT SUMMARY COMFORT CARE PT, NEW ADMIT, FAMILY AT BEDSIDE, PT MEDICATED PER EMAR AT SIGNS OF DISCOMFORT. FAMILY ORIENTED TO ROOM AND CALL LIGHT. CALL LIGHT IN REACH AT BEDSIDE.
--- NOTE | 2021-10-09 08:58 | NUR ---
PATIENT IS ASLEEP. NO SIGNS OF DISCOMFORT OR ANXIETY AT THIS TIME. FAMILY IS AT THE BEDSIDE. WILL CONTINUE TO MONITOR
--- NOTE | 2021-10-09 11:08 | NUR ---
Family at bedside pt well medicated. Review of medications with family. Will see tomorrow if we can transfer home.
--- NOTE | 2021-10-09 12:02 | NUR ---
FAMILY AT THE BEDSIDE. NO SIGN OF PAIN
--- NOTE | 2021-10-09 17:15 | NUR ---
FAMILY AT THE BEDSIDE. PATIENT'S ATTENDS CHECKED AND CHANGED
--- NOTE | 2021-10-09 17:18 | NUR ---
PATIENT HAS BEEN NON-RESPONSIVE MOST OF THIS SHIFT. SHE DID OPEN HER EYES WHILE BEING CHANGED THIS EVENING. FAMILY HAS BEEN AT THE BEDSIDE THROUGHOUT THE SHIFT. MEDICATED FOR PAIN NEEDED. NO SIGNS OF SEIZURE ACTIVITY. WILL CONTINUE TO MONITOR
--- NOTE | 2021-10-10 14:51 | NUR ---
FAMILY PROVIDED WITH HOT WATER AND ICE WATER
--- NOTE | 2021-10-10 17:48 | NUR ---
pt stable and comfortable.
--- NOTE | 2021-10-11 04:47 | NUR ---
JANNET REMAINED UNRESPONSIVE, SHE WAS TURNED EVERY 2 HOURS, SHE GRIMACED ONCE WE TURNED HER. NO SIGNS OF PAIN OR SEIZURES. WILL CONTINUE TO MONITOR
--- NOTE | 2021-10-11 17:50 | NUR ---
SHIFT SUMMARY PATIENT IS NOT ALERT TO SURROUNDINGS OR TACTILE STIMULE. NO RESPONSE TO VERBAL COMMUNICATION BUT LIGHT GRIMANCE TO STERNAL RUB NOTED. PATIENT MOSTLY RESTING COMFORTABLY TODAY AND NOTICED SOME MILD CHANGES IN BREATHING PATTERN AND MIDICATED WITH ATIVAN IV PER FAMILY REQUEST X3 TODAY. EXPLAINED IN DETAIL ABOUT THE END OF LIFE CARE AND THINGS TO EXPECT, THE PROCESS AND CHANGES THEY OCCUR AND ANSWERED QUESTIONS. FAMILY SEEMS AT [place] WITH THE SITUATION AND REQUEST TO NOT HAVE HER TURNED PASSED OFF THE DISCOMFORT WHEN DONE AND WE AGREED AND FOLLOWED ORDERS. COMFORT MEASURES IN [place] AND FAMILY SITTING AT BEDSIDE. O2 SAT IS 965 ON RA NOTED ON CONTINOUS PULSE OX ON PT PER FAMILY REQUEST WELL. HR HAS INCREASED SINCE AM. STARTED AT 87 AND NOW IN THE LOW 100S. LAST NOTED 109. NAD NOTED. WILL CONTINUE TO MONITOR IN CARE
--- NOTE | 2021-10-11 22:13 | NUR ---
PT NOTED THE PT HAD INCREASED MUCOUS. PT MEDICATED WITH ATROPINE DROPS IN HER CHEEK DUE TO PT LOCKING HER TEETH. SATISFIED WITH PT CARE AT THIS TIME.
--- NOTE | 2021-10-12 01:33 | NUR ---
PT CONCERNED REGARDING "GURGLING" FROM THE PT. I SWABBED THE PT'S MOUTH WITH TOOTHETTE AND MOUTHWASH. PT HAS INCREASED MUCOUS. I APPLIED A SCOPOLAMINE PATCH AT THIS TIME AND INFORMED THE TO CALL FOR ANY OTHER CONCERNS. LUNG SOUNDS AUSCULTATED AND COARSE.
--- NOTE | 2021-10-12 05:13 | NUR ---
GUTTER INSTALLER SUMMARY ADMITTED FOR ACUTE INTRACRANIAL HEMORRHAGE. PT IS A DNR ON COMFORT CARE. HAS BEEN AT BEDSIDE THROUGHOUT THE SHIFT. PT HAD AN EPISODE OF "GURGLING" PER AND LUNG SOUNDS WERE AUSCULTATED AND COARSE THROUGHOUT. PT DOES NOT APPEAR TO BE IN PAIN OR ANXIOUS THROUGHOUT THE SHIFT. PT MEDICATED FOR INCREASED SECRETIONS X2. ATTENDS CHANGED X2 WITH FOUL SMELLING URINE. NO MOTTLING TO THE EXTREMITIES. RESPIRATIONS SHALLOW AND SLOW. PT INCREASINGLY SWEATY.
--- NOTE | 2021-10-12 06:21 | NUR ---
PT BEGAN TO CRY AND GRIMACE DURING TURN FOR ATTENDS CHANGE. PT RETURNED TO POSITION OF COMFORT AFTER ATTENDS CHANGE AND MEDICATED WITH 20 MG OF ROXANOL PER MAR. PT SHOWS NO SIGNS OF PAIN AT THIS TIME AFTER MEDICATION ADMINISTRATION. ORAL CARE PERFORMED WITH EMILY.
--- NOTE | 2021-10-12 13:37 | NUR ---
Spoke with Dr Haddad and discussed case. Family would like to take Pt home with hospice services. Pt resting in bed with her eyes closed. Pt appears comfortable with no S/S of distress at this time. Family at bedside and are requesting hospice agency that is available the soonest. [facility] can admit on Sunday and [facility] can admit tomorrow. Family requests [facility]. Family expreses appreciation and report no other concerns at this time. Left message with [facility] Lializ Aviles. Palliative Care will remain available.
--- NOTE | 2021-10-12 13:55 | NUR ---
Spiritual Care Referral Visit: Pt. was resting comfortably. Spouse was sleeping soundly. Faciliated a family history with two daughters present. Identified some spiritual differences in the family system. Was present for an update from Pallative Care. Prayed with family, and agreed with spouse that I would return latrer in the afternoon.
--- NOTE | 2021-10-12 16:38 | NUR ---
Late Entry from 10/12/2021 at 1500: Received referral from Palliative Care Nurse (Yosi Peña) on 10/12/2021. Patient is to discharge - 10/13/2021 with orders for hospice and family elected [facility]. Patient is being seen at [facility] by [facility] Pig Machine Supervisor (Dr. Haddad) who has determined that patient is hospice appropriate. Gathered supporting documentation for referral (face sheet, labs, imaging, progress notes, palliative care note, and H&P) and sent to [facility] puttying and calking supervisor (Rudolph Dietrich) for review. Will attempt to meet with patient and family today to further discuss the above. Traci Boles Referral Liaison
--- NOTE | 2021-10-12 16:39 | NUR ---
Met with patient and patient's (Naeem Clarke) to further discuss hospice services and the election of [facility]. Patient is asleep during this meeting. Patient's is agreeable to the above. Discussed what hospice is (reserved for patients with a terminal diagnosis with life expectancy of 6 months or less). Discussed that some patients exceed the 6 months expectancy and stay on service and some patients stabilize and come off hospice. Patient's verbalized understanding of the above. Discussed with patient's that hospice service focuses on quality of life at the end of life and that rather than measuring the quantity of days, the quality of those days would be measured. Discussed with patient's that with hospice service the goal would be to keep the patient out of the hospital and comfortable by managing symptoms at home. Patient's verbalized understanding. Discussed the people, prescriptions, and equipment of hospice. People- discussed the team of people and their roles (RNs, chaplains, therapists, LCSWs, CNAs, and volunteers) that would be there to support not only the patient but also their family during this time. Explained to the patient's that the team would be custom tailored to the patient and family's needs during this time. Patient's verbalized understanding. Prescriptions- discussed that [facility] to provide medications related to the hospice diagnosis and for symptom management. All other medications that patient chose to stay on would be patient's and/or patient's family's responsibility to provide and pay for. Patient's verbalized understanding. Discussed that upon discharge patient would be given three prescriptions, one for morphine 20mg/mL #30mL (0.25mL - 1mL PO/SL Q1H PRN SOB/pain), one for lorazepam 0.5mg #20 (1 - 2 PO Q4H PRN anxiety), and one for hyoscyamine 0.125mg SL tablets #30 (1 SL Q2H PRN secretions). Explained to the patient's that as patient would not yet be admitted to hospice service at the time of discharge those prescriptions would be patient/patient's family's responsibility to fill and pay for. Patient's verbalized understanding. Equipment- discussed with patient's that we contract through [employer] to provide DME such as hospital beds, commodes, etc. to patient. Wrote order for DME (hospital bed, full rails, over bed table, and pump & pad) [facility]13/[facility]. Discussed with patient's that [facility] does not supply the sheets for the beds. Discussed that one of two options can be used- either a twin extra-long fitted sheet OR a hawthorne sized flat sheet wrapped around the pump & pad. Patient's verbalized understanding. Discussed with patient's that once patient was admitted onto hospice services the goal would be for them to contact us ([facility]) over contacting 911 or presenting back to the hospital/ED. Patient's verbalized understanding. Discussed the tentative discharge plans for - 10/13/2021 at 1030 with preferred mode of transportation- medical transport via gurney. Explained to patient's that I would arrange transportation for patient. Patient's verbalized understanding. Offered a chance for patient's to ask questions regarding the above of which there were none. Will continue to monitor and follow as appropriate for discharge. Traci Boles Referral Liaison
--- NOTE | 2021-10-12 17:14 | NUR ---
SHIFT SUMMARY PATIENT IS UNDER COMFORT CARE MEASURES AND A DNR. FAMILY OF AND 3 DAUGHTERS HAVE BEEN AT BEDSIDE ON TODAY. DISCUSSED CHAGES NOTED OF COLOR CHANGE AND MOTTLED MERY AND REDNESS TO FACE AND FEET. BODY AND SKIN IS VERY WARM TO TOUCH, SKIN MOIST AND CLAMMY WITH ORDOR COMING FROM HER PORES AND FAMILY QUESTIONED AND EXPLAINED THE END OF LIFE PROCESS TAKING PLACE AFTER NO FOOD OR FLUIDS IN BODY.1 SMALL AMOUNT OF URINE THIS AM NOTED AND CHANGED. URINE VERY DARK IN COLOR AND FOULF SMELLING. UNRESPONSIVE TO VERBAL OR TACTILE STIMULI BUT DOES STILL MAKE GRIMICING FACES WHEN TURNED OR MEDS PUT IN BUCCAL AREA. HAS INCREASED AMOUNTS OF SECRETIONS SEEN. ORAL CARE DONE EVERY 1-2 HOURS AND ATRPINE DROPS GIVEN TO HELP EVERY 2-3 HOURS WELL. ATIVAN AND ROXANAL GIVEN FOR RESTLESSNESS AND GRIMMICES NOTED. STILL ON ROOM AIR AND SATS 90-92% WITH HR IN THE 110'S FROM CONTINOUS PULSE OX BY REQUEST FROM FAMILY. HOSPICE WAS CONSULTED ON TODAY AND SAW PT AKANKSHA AND SPOKE WITH FAMILY AND SHE WILL BE DISCHARGED TO HOSPICE CARE AT 10:30 AM 10/13/21
--- NOTE | 2021-10-12 18:51 | NUR ---
Spiritual Care VIsit. Pt. was still unresponsive. Met with Spouse and daughter. Empathetic listening of the family and pastoral prayaer was given over the pt. I will follow up in the AM.
--- NOTE | 2021-10-13 06:21 | NUR ---
SAMPLE PULLER SUMMARY PATIENT HAD A FAIR SHIFT. HAD HER PRN MEDS FOR COMFORT. SHE WAS KEPT COMFORTABLE ALL THROUGH THE NIGHT. WILL CONTINUE TO MONITOR HER.
[2021-10-13] MEDS ORDERED: MORP20L PO (10:05)
[2021-10-13] MEDS ORDERED: LORA.5 PO (10:06)
[2021-10-13] MEDS ORDERED: ANASPAZ0.125 MG SL (10:08)
--- NOTE | 2021-10-13 10:43 | NUR ---
Spiritual Care Visit. I circled back to connect with family of pt. before Home hospice arrived. Faciliatated life review and explored issues of jeff and belief with spouse. Listened empathetically. Daughter was present. Prayed with family.
--- NOTE | 2021-10-13 11:27 | NUR ---
Pt resting in bed with her eyes closed. Family at bedside. Primary RN expresses concern of Pt coughing and choking after offering Roxanol. Pt currently appears comfortable with no S/S of distress. Transport has arrived and assisted with transfering Pt from bed to [facility]. No other concerns reported at this time. Palliative Care will remain available.
--- NOTE | 2021-10-13 11:28 | NUR ---
DISCHARGE HOME/HOSPICE CARE PATIENT IS COMFORT CARE MEASURES ONLY. HAS FAMILY OF AND DAUGHTER AT [facility] WITH HER PROVIDING SUPPORT AND HOLDING HANDS. PATIENT WAS LAYING IN BED RESTING COMFORTABLY. TURNED AND CLEANED SOFTLY AND CHANGED DIAPER AND NEW GOWN FOR TRANSPORT HOME THIS AM. FROM CONTINOUS PULSE OX MONITOR SEEN PATIENT IS 91% ON RA AND BREATHING UNLABORED, RESPIRATIONS EQUAL AND WELL RISE OF CHEST. CHEST SOUNDS VERY COARSE AND CRACKLES. NOTED TO HAVE MORE SECRETIONS AND DROOLING. GAVE SMALL AMOUNT OF STROPINE DROPS, ROXANOL FOR PAIN/RESP EFFORT AND SOME ATIVAN TO HELP KEEP HER RELAXED FOR THE TRANSPORT RIDE HOME. SCOPE PATCH STILL TO LEFT EAR IN PLACE. PT UNRESPONSIVE TO ANY STIMULI. SKIN PALE IN COLOR AND GREYISH LOOKING. TRANSFERRED TO STRETCHER AND COVERED. LEAVING UNTI WITH AMBULANCE TO GO HOME WITH HOSPICE CARE. WITH BELONGINGS. PT IN NO SIGNS OF DISTRESS AT THIS TIME
== END 2021-10-13 11:05 | disposition hospice, home (50) ==
LOC: ER 12:48 → MEDS 12:49 → ER 15:58 → MEDS 15:58
PROVIDERS: Emergency Medicine; ADMIT Hospitalist
DX: I62.9 Nontraumatic intracranial hemorrhage, unspecified (principal); G20 Parkinson's disease; I10 Essential (primary) hypertension; G30.9 Alzheimer's disease, unspecified; F02.80 Dementia in other diseases classified elsewhere, unspecified severity, without behavioral disturbance, psychotic disturbance, mood disturbance, and anxiety; K21.9 Gastro-esophageal reflux disease without esophagitis; E78.5 Hyperlipidemia, unspecified; Z66 Do not resuscitate; Z20.822 Contact with and (suspected) exposure to COVID-19; Z96.653 Presence of artificial knee joint, bilateral; Z87.891 Personal history of nicotine dependence; Z88.5 Allergy status to narcotic agent; Z88.2 Allergy status to sulfonamides
CPT/HCPCS: 0241U; 70450; 80053; 82140; 84484; 85025; 93005; 93010; 99285-25; A9270; G0480; J2060; J7030